=== PATIENT | male | born 1990 | race African-American/Black ===

== ENCOUNTER 2021-02-28 10:42 | Outpatient (CLI) | payer MEDICARE, MEDICAID, SELFPAY | END 2021-02-28 10:43 | disposition home or self-care (01) | LOC: ANHAUDIO 10:46 | PROVIDERS: Visit Provider Internal Medicine Infectious Disease | DX: H91.93 Unspecified hearing loss, bilateral (principal) | CPT/HCPCS: 92557; 92567 ==